=== PATIENT | male | born 1995 | race Caucasian/White ===

== ENCOUNTER 2018-11-26 07:57 | Emergency (ER) | payer SELFPAY ==
[~2018-11-26] VITALS: Ht 160 cm; Wt 77.2 kg
[2018-11-26 08:01] VITALS: Ht 160 cm; Wt 77.2 kg
[2018-11-26 09:27] VITALS: BP 113/61
== END 2018-11-26 09:27 | disposition home or self-care (01) ==
LOC: ED 07:57
DX: S40.211A Abrasion of right shoulder, initial encounter (principal); W01.198A Fall on same level from slipping, tripping and stumbling with subsequent striking against other object, initial encounter; Y93.89 Activity, other specified; Y92.89 Other specified places as the place of occurrence of the external cause; Y99.0 Civilian activity done for income or pay